=== PATIENT | female | born 1950 | race Caucasian/White ===

== ENCOUNTER 2023-07-30 20:06 | Observation (INO) | payer MEDICARE, OTHER ==
[2023-07-30] MEDS: Nitroglycerin 0.4 MG Tab.SL SL ONE ×2 (20:25→21:50)
[2023-07-30] MEDS: Aspirin 81 MG Tab.Chew PO ONE (20:25)
[2023-07-30] MEDS ORDERED: Sodium Chloride 0.9% 10 ML Syringe FLUSH PRN (20:28)
[2023-07-30 20:47] LABS: BASOPHILS PERCENT AUTO 0.7 % (0.2-1.2); EOSINOPHILS ABSOLUTE AUTO 0.1 x10^3/uL (0.0-0.5); EOSINOPHILS PERCENT AUTO 1.6 % (0.0-4.0); HEMATOCRIT 40.3 % (33.0-47.0); HEMOGLOBIN 13.8 g/dL (12.0-16.0); LYMPHOCYTES ABSOLUTE AUTO 2.1 x10^3/uL (1.0-4.8); MEAN CORPUSCULAR HEMOGLOBIN 31.9 pg (26.0-32.0); MEAN CORPUSCULAR HGB CONC 34.2 g/dL (32.0-36.0); MEAN CORPUSCULAR VOLUME 93.1 fL (78.0-93.0); MONOCYTES ABSOLUTE AUTO 0.4 x10^3/uL (0.0-0.8); NEUTROPHILS ABSOLUTE AUTO 2.8 x10^3/uL (1.8-7.7); NEUTROPHILS PERCENT AUTO 50.7 % (50.0-80.0); PLATELET COUNT,PLT 193 x10^3/uL (130-400); RED BLOOD CELL COUNT 4.33 x10^6/uL (4.00-5.50); WHITE BLOOD CELL COUNT,WBC 5.5 x10^3/uL (4.0-10.0)
[2023-07-30 21:04] LABS: PROTHROMBIN TIME 10.6 SEC (9.5-12.2)
[2023-07-30 21:09] LABS: LACTIC ACID 1.1 mmol/L (0.4-2.0)
[2023-07-30 21:15] LABS: ALBUMIN 3.6 g/dL (3.4-5.0); BILIRUBIN TOTAL 0.3 mg/dL (0.2-1.0); CALCIUM 9.8 mg/dL (8.5-10.1); CREATININE 0.9 mg/dL (0.55-1.02); EST CRCL DRUG DOSING (CG) 55.75 mL/min; MAGNESIUM 2.3 mg/dL (1.8-2.4); POTASSIUM,K 3.6 mmol/L (3.5-5.1); PROTEIN TOTAL,TP 7.2 g/dL (6.4-8.2); TSH ULTRASENSITIVE 4.093 uIU/mL (0.358-3.74)
[2023-07-30 21:17] LABS: ANION GAP 9.6 mmol/L (5-15)
[2023-07-30 21:38] LABS: CORONAVIRUS COVID-19 NAA NEGATIVE (NEGATIVE); INFLUENZA A NAA NEGATIVE (NEGATIVE); INFLUENZA B NAA NEGATIVE (NEGATIVE); RESPIRATORY SYNCYTIAL VIR NAA NEGATIVE (NEGATIVE)
[2023-07-30] MEDS: Enoxaparin 80 MG/0.8 ML Syringe SUBCUT SCH (21:50)
[2023-07-30] MEDS ORDERED: Morphine 4 MG/ML Syringe IVPUSH PRN (21:59)
[2023-07-30] MEDS ORDERED: Nitroglycerin Lingual Spray 4.9 GM Canister TRLING PRN (21:59)
[2023-07-30] MEDS ORDERED: Ondansetron 4 MG Tab.DIS PO PRN (21:59)
[2023-07-31 07:56] LABS: HEMATOCRIT 37.1 % (33.0-47.0); HEMOGLOBIN 12.7 g/dL (12.0-16.0); MEAN CORPUSCULAR HEMOGLOBIN 32.2 pg (26.0-32.0); MEAN CORPUSCULAR HGB CONC 34.2 g/dL (32.0-36.0); MEAN CORPUSCULAR VOLUME 93.9 fL (78.0-93.0); RED BLOOD CELL COUNT 3.95 x10^6/uL (4.00-5.50); WHITE BLOOD CELL COUNT,WBC 4.1 x10^3/uL (4.0-10.0)
[2023-07-31 08:15] LABS: ALBUMIN 3.2 g/dL (3.4-5.0); BILIRUBIN TOTAL 0.5 mg/dL (0.2-1.0); CALCIUM 9.4 mg/dL (8.5-10.1); CREATININE 0.8 mg/dL (0.55-1.02); EST CRCL DRUG DOSING (CG) 62.72 mL/min; MAGNESIUM 2.2 mg/dL (1.8-2.4); POTASSIUM,K 3.9 mmol/L (3.5-5.1); PROTEIN TOTAL,TP 6.4 g/dL (6.4-8.2)
[2023-07-31 08:22] LABS: ANION GAP 6.9 mmol/L (5-15)
[2023-07-31] MEDS: Aspirin 81 MG Tab.EC PO SCH (08:26)
[2023-07-31 10:25] VITALS: BP 160/60; PULSE 74
== END 2023-07-31 10:15 | disposition home or self-care (01) ==
LOC: VM.ED 20:06 → VM.MS 21:44
PROVIDERS: ADMIT Physician Assistant; ATTEND Physician Assistant
DX: R07.2 Precordial pain (principal); R00.2 Palpitations; I10 Essential (primary) hypertension; I48.91 Unspecified atrial fibrillation; E78.00 Pure hypercholesterolemia, unspecified; Z20.822 Contact with and (suspected) exposure to COVID-19; Z79.01 Long term (current) use of anticoagulants; Z79.899 Other long term (current) drug therapy
CPT/HCPCS: 0241U; 36415; 71045; 80053; 80061; 83605; 83735; 84443; 84484; 85025; 85027; 85610; 85730; 93005; A9270; G0378; J1650; 96372; 99285